=== PATIENT | female | born 1980 | race Caucasian/White ===

== ENCOUNTER → 2023-02-27 09:37 | Outpatient (CLI) | payer MEDICAID, SELFPAY | PROVIDERS: PCP Family Medicine; Visit Provider Nurse Practitioner Family | DX: D86.9 Sarcoidosis, unspecified (principal); J45.909 Unspecified asthma, uncomplicated | CPT/HCPCS: 94060; 94618; 94726; 94729 ==

== ENCOUNTER → 2023-03-04 14:34 | Outpatient (CLI) | payer MEDICAID, SELFPAY ==
[2023-03-04 15:12] LABS: Basophils # 0.1 K/mm3 (0-0.2); Basophils % 0.9 % (0.1-2.0); Eosinophils # 0.2 K/mm3 (0.0-0.4); Eosinophils % 2.5 % (0.1-12.0); Hematocrit 44.5 % (37.0-47.0); Hemoglobin 14.8 g/dL (12.2-16.2); Lymphocytes # 1.8 K/mm3 (0.7-4.5); Lymphocytes % 25.8 % (10-50); Mean Corpuscular HGB Conc 33.2 g/dL (31.8-35.4); Mean Corpuscular Hemoglobin 30.7 pg (27.0-31.2); Mean Corpuscular Volume 92.6 fl (81-99); Mean Platelet Volume 8.2 fl (7.4-10.4); Monocytes # 0.5 K/mm3 (0.1-1.0); Neutrophils # 4.5 K/mm3 (1.8-7.8); Neutrophils % 63.8 % (37.0-80.0); Platelet Count 289 K/mm3 (142-424)
[2023-03-04 16:12] LABS: Chloride 94 mmol/L (98-107); Potassium 4.9 mmoL/L (3.5-5.1); Sodium 138 mmol/L (136-145)
[2023-03-04 16:15] LABS: Alanine Aminotransferase 21 U/L (12-78); Albumin Level 4.6 g/dl (3.5-5.0); Albumin/Globulin Ratio 1.8 (1.1-1.8); Alkaline Phosphatase 88 U/L (38-126); Anion Gap 14.9 mEq/L (5-15); Aspartate Amino Transferase 28 U/L (14-36); Bilirubin,Total 0.3 mg/dl (0.2-1.3); Blood Urea Nitrogen 10 mg/dl (7-17); Calcium 9.8 mg/dl (8.4-10.2); Carbon Dioxide 34 mmol/L (22.0-30.0); Estimated Glomerular Filt Rate 60 ml/min (>60); GFR (African American) 73 ML/MIN (>60); Globulin 2.6 g/dL (1.3-3.2); Glucose 85 mg/dl (74-100); Total Protein,Serum 7.2 g/dl (6.3-8.2)
[2023-03-04 16:46] LABS: Thyroid Stimulating Hormone 3.24 uIU/mL (0.465-4.68)
[2023-03-04 18:29] LABS: Vitamin B12 203 pg/mL (239-931)
[2023-03-04 18:31] LABS: Folate 2.94 ng/mL
[2023-03-06 11:13] LABS: Rapid Plasma Reagin Ab Titer Non Reactive (NonRea<1:1)
[2023-03-06 14:13] LABS: Anti-Centromere B Antibodies <0.2 AI (0.0-0.9); Anti-DNA (DS) Ab Qn <1 IU/mL (0-9); Anti-Jo-1 <0.2 AI (0.0-0.9); Anti-Smith Antibody <0.2 AI (0.0-0.9); Antichromatin Antibodies <0.2 AI (0.0-0.9); Antiscleroderma-70 Antibodies <0.2 AI (0.0-0.9); RNP Antibodies <0.2 AI (0.0-0.9); Sjogren's Anti-SS-A <0.2 AI (0.0-0.9); Sjogren's Anti-SS-B <0.2 AI (0.0-0.9)
[2023-03-06 15:13] LABS: Angiotensin Converting Enzyme 48 U/L (14-82)
== END ==
PROVIDERS: PCP Family Medicine; Visit Provider Nurse Practitioner Family
DX: F39 Unspecified mood [affective] disorder (principal); D86.9 Sarcoidosis, unspecified; F43.10 Post-traumatic stress disorder, unspecified; G43.019 Migraine without aura, intractable, without status migrainosus; G47.00 Insomnia, unspecified; J45.909 Unspecified asthma, uncomplicated; M54.2 Cervicalgia; R20.0 Anesthesia of skin; R20.2 Paresthesia of skin; R29.2 Abnormal reflex; R44.1 Visual hallucinations; Z85.41 Personal history of malignant neoplasm of cervix uteri; Z87.898 Personal history of other specified conditions
CPT/HCPCS: 36415; 80053; 82164; 82607; 82746; 84443; 85025; 86225; 86235; 86593

== ENCOUNTER → 2023-03-27 13:00 | Outpatient (CLI) | payer MEDICAID, SELFPAY ==
--- NOTE | 2023-03-27 13:05 | MR_ITS ---
FINAL REPORT CLINICAL HISTORY: neck pain, brisk reflexes FINDINGS: Multiplanar MR imaging of the cervical spine was performed without contrast. On the sagittal T2-weighted images, disc degeneration is seen throughout. There is no evidence of fracture. The vertebral alignment is normal. The cervical spinal cord has an unremarkable appearance without evidence of mass, edema or syrinx. No significant canal stenosis is identified. The cervicomedullary junction is normal. C2-3: There is no significant canal stenosis or neural foraminal narrowing. C3-4: There is no significant canal stenosis or neural foraminal narrowing. C4-5: There is no significant canal stenosis or neural foraminal narrowing. C5-6: An annular bulge and uncovertebral osteophytes are present. There is no significant canal stenosis or neural foraminal narrowing. C6-7: An annular bulge is present. There is a small central disc protrusion. There is no significant canal stenosis or neural foraminal narrowing. C7-T1: There is no significant canal stenosis or neural foraminal narrowing. IMPRESSION: Degenerative disc changes as above. Small central disc protrusion at C6-7. Reviewed, Interpreted and Dictated by Jaydon Jackson III, MD Transcribed by Nona Colon Authenticated and . [facility]
--- NOTE | 2023-03-27 13:05 | MR_ITS ---
FINAL REPORT CLINICAL HISTORY: eval mass, lesion, volume loss, metasis. headache with hallucinations FINDINGS: Multiplanar MR imaging of the brain was performed without and with contrast. There is no evidence of intracranial hemorrhage or mass. No abnormal extra-axial fluid collection is seen. The ventricular size is within normal limits. There is no evidence of shift of the midline structures. The posterior fossa and brainstem have an unremarkable appearance. No area of abnormal restricted diffusion is identified. No abnormal contrast enhancement is seen. Normal major vessel vascular flow voids are noted. IMPRESSION: No acute intracranial abnormality identified. Reviewed, Interpreted and Dictated by Jaydon Jackson III, MD Transcribed by Nona Colon Authenticated and [facility]
== END ==
PROVIDERS: PCP Family Medicine; Visit Provider Nurse Practitioner Family
DX: M54.2 Cervicalgia (principal); G43.019 Migraine without aura, intractable, without status migrainosus; R20.0 Anesthesia of skin; R20.2 Paresthesia of skin; D86.9 Sarcoidosis, unspecified; R29.2 Abnormal reflex; R44.1 Visual hallucinations; R51.9 Headache, unspecified; Z85.41 Personal history of malignant neoplasm of cervix uteri; F39 Unspecified mood [affective] disorder; F43.10 Post-traumatic stress disorder, unspecified; G47.00 Insomnia, unspecified; J45.909 Unspecified asthma, uncomplicated
CPT/HCPCS: 70553; 72141; 76376; A9576

== ENCOUNTER → 2023-05-06 11:54 | Outpatient (CLI) | payer MEDICAID, SELFPAY ==
--- NOTE | 2023-05-06 12:05 | XR_ITS ---
FINAL REPORT CLINICAL HISTORY: neck pain, brisk reflexes sarcoidosis pain in neck, constant headaches FINDINGS: SPINE CERVICAL COMPLETE/FLEXION & EXT 7 views were obtained. Vertebrae are normal height. Mild degenerative disc changes at C4-C5 and C5-C6. Minimal anterolisthesis at C4-C5. Physiologic subluxation with flexion. No instability. Neural foramen are widely patent. IMPRESSION: No acute process. Reviewed, Interpreted and Dictated by Ross Farrell MD Transcribed by Sy Telles Authenticated and [facility]
--- NOTE | 2023-05-06 12:05 | XR_ITS ---
FINAL REPORT CLINICAL HISTORY: hypoxemia, left breast biopsy 3 weeks ago, biopsy of right lung 6 years ago FINDINGS: There is no evidence of effusion or other pleural disease. The mediastinum has a normal appearance. The cardiac silhouette is unremarkable. IMPRESSION: Unremarkable chest exam. Reviewed, Interpreted and Dictated by Ross Farrell MD Transcribed by Sy Telles Authenticated and [facility]
== END ==
PROVIDERS: PCP Family Medicine; Visit Provider Nurse Practitioner Family
DX: D86.9 Sarcoidosis, unspecified (principal); F39 Unspecified mood [affective] disorder; F43.10 Post-traumatic stress disorder, unspecified; G47.00 Insomnia, unspecified; J45.909 Unspecified asthma, uncomplicated; M54.2 Cervicalgia; R20.0 Anesthesia of skin; R20.2 Paresthesia of skin; R29.2 Abnormal reflex; R44.1 Visual hallucinations; Z85.41 Personal history of malignant neoplasm of cervix uteri; Z87.898 Personal history of other specified conditions; G43.019 Migraine without aura, intractable, without status migrainosus
CPT/HCPCS: 71046; 72052; 94762

== ENCOUNTER → 2023-05-20 15:24 | Outpatient (CLI) | payer MEDICAID, SELFPAY ==
--- NOTE | 2023-05-20 15:59 | ECG_ITS ---
APPROVED REPORT Exam: Resting ECG HR:59 bpm ECG Measurements Heart Rate 59 AXES ID 127 P 54 QRSd 92 QRS 50 QT 405 T 50 QTc 405 Conclusion SINUS BRADYCARDIA MODERATE T-WAVE ABNORMALITY, CONSIDER ANTERIOR ISCHEMIA [-0.1+ mV T-WAVE IN V3/V4] ABNORMAL ECG UNCONFIRMED REPORT Electronically signed by : Danny Balderas MD 05/20/2023 20:45:40
[2023-05-20 17:37] LABS: Alanine Aminotransferase 17 U/L (12-78); Albumin Level 4.7 g/dl (3.5-5.0); Albumin/Globulin Ratio 1.7 (1.1-1.8); Alkaline Phosphatase 89 U/L (38-126); Anion Gap 12.8 mEq/L (5-15); Aspartate Amino Transferase 24 U/L (14-36); Bilirubin,Total 0.3 mg/dl (0.2-1.3); Blood Urea Nitrogen 10 mg/dl (7-17); Calcium 9.8 mg/dl (8.4-10.2); Carbon Dioxide 29 mmol/L (22.0-30.0); Chloride 103 mmol/L (98-107); Estimated Glomerular Filt Rate 60 ml/min (>60); GFR (African American) 73 ML/MIN (>60); Globulin 2.7 g/dL (1.3-3.2); Glucose 82 mg/dl (74-100); Potassium 4.8 mmoL/L (3.5-5.1); Sodium 140 mmol/L (136-145); Total Protein,Serum 7.4 g/dl (6.3-8.2)
[2023-05-20 17:43] LABS: C-Reactive Protein 2.4 mg/L (0-4)
== END ==
LOC: LAB 15:25
PROVIDERS: PCP Family Medicine; Visit Provider Internal Medicine Pulmonary Disease
DX: R06.09 Other forms of dyspnea (principal); J84.9 Interstitial pulmonary disease, unspecified; Z01.818 Encounter for other preprocedural examination; D86.9 Sarcoidosis, unspecified
CPT/HCPCS: 36415; 80053; 82565; 84520; 86140; 93005

== ENCOUNTER → 2023-06-10 05:15 | Outpatient (CLI) | payer MEDICAID, SELFPAY ==
--- NOTE | 2023-06-10 | CA_ITS ---
APPROVED REPORT EXAM: Comprehensive 2D, Doppler, and color-flow Echocardiogram Automatic Hemmer: Ale Samaniego CRT Ht: 5 ft 2 in Wt: 131lbs BSA: 1.60 BP: 114/71 mmHg Indications: Shortness of Breath, asthma, sarcoidosis, ex smoker 2D Dimensions LVOT 1.81 cm (M/F) 1.5-2.5 LA Volume 16.00 mL LA Volume Index 10.00 mL/m2 (M/F) 16-34 M-Mode Dimensions RVDd 2.03 cm (0.9-2.6) LA Diam 2.63 cm (1.9-4.0) LVDd 3.57 cm (3.5-5.7) Ao Diam 3.59 cm (2.0-3.7) LVDs 2.38 cm (3.5-5.7) IVSd 1.07 cm (0.6-1.1) PWd 0.67 cm (0.6-1.1) EF (Teich) 63.00% FS 33.30% EDV (Teich) 53.30 mL TAPSE 1.79 (<1.7) ESV (Teich) 19.70 mL LV Diastology MED E' 12.50 (< 7 cm/sec) MED A' 13.20 cm/s LAT E' 10.00 (<10 cm/sec) LAT A' 12.40 cm/s Aortic Valve AO Peak GR. 3.00 mmHg Pulmonary Valve PV Peak Velocity 61.00 (50-150 cm/s) Tricuspid Valve TR P. Velocity 264.00 cm/s RAP Estimate 10.00 mmHg RVSP 38.00 mmHg Left Ventricle The left ventricle is normal size. The left ventricular systolic function is normal. The left ventricular ejection fraction is within the normal range. There is normal left ventricular wall thickness. There is normal LV segmental wall motion. The left ventricular diastolic function is normal. LVEF is 55-60%. Right Ventricle The right ventricle is normal size. The right ventricular systolic function is normal. Atria The left atrium size is normal. The right atrium size is normal. There is no Doppler evidence of interatrial shunt. Aortic Valve The aortic valve is trileaflet. The aortic valve opens well. There is no aortic valvular stenosis. No aortic regurgitation is present. Mitral Valve The mitral valve is normal in structure. No evidence of mitral valve stenosis. There is no mitral valve regurgitation noted. Tricuspid Valve The tricuspid valve is thin and pliable. Trace tricuspid regurgitation. RVSP is 15-20 mmHg. Pulmonic Valve The pulmonary valve is normal in structure. Trace pulmonic regurgitation. Great Vessels The aortic root is normal in size. The ascending aorta is normal in size. IVC is normal in size and collapses >50% with inspiration. Pericardium There is no pericardial effusion. Other Information Study Quality: Adequate Conclusion Normal biventricular systolic function. No significant valvular disease. Electronically signed by : Eleanor Pereira, 06/11/2023 15:04:05
--- NOTE | 2023-06-10 11:00 | CT_ITS ---
FINAL REPORT TECHNIQUE: Thin-section axial CT images were obtained through the soft tissues of the neck without and with contrast. This study was performed with techniques to keep radiation doses as low as reasonably achievable, (ALARA). Individualized dose reduction techniques using automated exposure control or adjustment of mA and/or kV according to the patient's size were employed. CLINICAL HISTORY: ABN PFT FINDINGS: The paranasal sinuses are well aerated. There is no adenopathy or mass lesion present. The thyroid is unremarkable. Limited images of the lung apices are unremarkable. The glottis and supraglottic areas are unremarkable. There is mild disc space narrowing at C5-6 with mild bilateral neural foraminal narrowing. There is no suspicious enhancing mass. IMPRESSION: No acute process. Mild changes of degenerative disc disease at C5-6. Reviewed, Interpreted and Dictated by Chris Villanueva MD Transcribed by Olesya Bales Authenticated and [facility]
== END ==
PROVIDERS: PCP Family Medicine; Visit Provider Internal Medicine Pulmonary Disease
DX: R06.02 Shortness of breath (principal); D86.9 Sarcoidosis, unspecified
CPT/HCPCS: 70492; 93306

== ENCOUNTER → 2023-07-09 14:43 | Outpatient (CLI) | payer MEDICAID, SELFPAY | PROVIDERS: PCP Family Medicine; Visit Provider Internal Medicine Pulmonary Disease | DX: G47.30 Sleep apnea, unspecified (principal); R06.83 Snoring | CPT/HCPCS: G0399 ==

== ENCOUNTER → 2023-07-30 15:50 | Outpatient (CLI) | payer MEDICAID, SELFPAY | PROVIDERS: PCP Family Medicine; Visit Provider Physician Assistant | DX: R06.00 Dyspnea, unspecified (principal); R07.9 Chest pain, unspecified; R42 Dizziness and giddiness; R55 Syncope and collapse; I20.89 Other forms of angina pectoris; D86.9 Sarcoidosis, unspecified; R53.83 Other fatigue; Z82.49 Family history of ischemic heart disease and other diseases of the circulatory system | CPT/HCPCS: 93270 ==

== ENCOUNTER → 2023-09-24 11:13 | Outpatient (CLI) | payer MEDICAID, SELFPAY ==
--- NOTE | 2023-09-24 11:13 | NM_ITS ---
APPROVED REPORT Exam: Nuclear Stress Test Indication: chest pain..soa..fatigue..syncope Patient Location: Outpatient Stress Tech: Kiya Avila NE Tech:Sara Kelly NOMIAnais RT(R)(N) Ht: 5 ft 2 in Wt: 131 lbs Bra Size: 32d HR: 74 bpm BP: 98/65 mmHg BSA: 1.60 m2 TID: 1.04 BMI: 23.9 History: chest pain..soa..fatigue..syncope Procedure: Patient received 0.4 mg of intravenous Lexiscan, resting heart rate 74 bpm, resting blood pressure 98/65 mmHg, with Lexiscan maximum heart rate achieved was 135 bpm which is 85 % of the maximum predicted heart rate and blood pressure was 117/72 mmHg. With Lexiscan, patient denied any complaint of chest pain. Cardiac Stress and Resting SPECT Images: Cardiac Stress and Resting SPECT images were obtained using technetium 99m Myoview 32.7 mCi stress and 10.47 mCi at rest. Resting and stress imaging in supine and prone positions demonstrate no evidence of fixed or reversible perfusion defects. Gated imaging demonstrates normal global and regional LV systolic function. LVEF is calculated at 71%. Conclusion: No evidence of fixed or reversible perfusion defects. Gated imaging demonstrates normal global and regional LV systolic function. LVEF is calculated at 71%. Electronically signed by : Eleanor Pereira MD 09/25/2023 09:53:19
--- NOTE | 2023-09-24 13:21 | CA_ITS ---
APPROVED REPORT Exam: Pharmacologic Technologist: Kiya Fernandez, Ht: 5 ft 2 in Wt: 129 lbs BSA: 1.59 m2 HR: 68 bpm BP: 98/65 mmHg Rhythm: NSR Medical History Medications: Lorazepam,,,,, Pantoprazole,,,,, SyMBICORT,,,,, Prednisone,,,,, LoraTADINE,,,,, Baclofen,,,,, Sertraline,,,,, ONdansetron,,,,, UBrelvy,,,,, AJOVY,,,,, GaVIlyte-G,,,,, Stress Test Details Test: LEXISCAN Reason for pharmacologic stress test: physical limitation. HR Resting HR: 74 bpm Max Heart Rate (APMHR): 175 bpm Max HR Achieved: 135 bpm Target HR (85% APMHR): 149 bpm % of APMHR: 77 Recovery HR: 85 bpm BP Resting BP: 98.0/65.0 mmHg Max BP: 117.0/72.0 mmHg Recovery BP: 110.0/67.0 mmHg ECG Resting ECG: NSR Stress ECG: No significant ST changes Arrhythmia: PVCs Clinical Exercise duration: 04:17 min Highest Stage Achieved: Exercise capacity: 1.0 METs Stress ECG Conclusion Stress 2 minute: Nausea, flushed 3 minute: Nausea, vomiting 4 minute: Nausea, vomitin Recovery 1 minute: Belching 2 minute: Aminophylline 100 mg slow IV given 3 minute: Feels much better 5 minute: sxs almost gone Symptoms: Mild SOA, flushed, nausea, vomiting. No CP. Arrhythmias/Ectopy: PVCs ST-T Changes: No significant ST changes Conclusion: Unremarkable Lexiscan stress. Myoview images reported separately. Test Summary REST . . . . . . . Resting REST 04:10 . . 74 . 98/ 65 . . Stage 1 01:00 . . 126 . . . . Stage 2 01:00 . . 135 . 109/ 70 . . Stage 3 01:00 . . 133 . . . . Stage 4 01:00 . . 117 . . . . Stage 4 01:17 . . 120 . 115/ 76 . Stop exercise at 04:17 RECOVERY 01:00 . . 109 . . . . RECOVERY 02:00 . . 114 . . . . RECOVERY 03:00 . . 110 . 117/ 72 . . RECOVERY 04:00 . . 103 . 117/ 72 . . RECOVERY 05:00 . . 85 . 110/ 67 . . RECOVERY 05:01 . . 85 . 110/ 67 . . Electronically signed by : Eleanor Pereira MD 09/25/2023 09:52:14
== END ==
LOC: RAD 11:13
PROVIDERS: PCP Family Medicine; Visit Provider Physician Assistant
DX: R06.09 Other forms of dyspnea (principal); I20.89 Other forms of angina pectoris; Z82.49 Family history of ischemic heart disease and other diseases of the circulatory system
CPT/HCPCS: 78452; 93017; 93018; A9502; J2785

== ENCOUNTER 2023-10-07 17:18 | Emergency (ER) | payer MEDICAID, SELFPAY ==
[2023-10-07] VITALS (9 sets, daily range): BP systolic 104–131; BP diastolic 73–84; PULSE 85–100; RESP 13–24; TEMP 36.3–36.7; O2SAT 95–98; BMI 23.6
--- NOTE | 2023-10-07 17:33 | XR_ITS ---
PROCEDURE INFORMATION: Exam: XR Chest Exam date and time: 10/07/2023 5:50 PM Age: 43 years old Clinical indication: Shortness of breath; Additional info: SOA TECHNIQUE: Imaging protocol: Radiologic exam of the chest. Views: 2 views. COMPARISON: No relevant prior studies available. FINDINGS: Lungs: Normal. Pleural spaces: Normal No pleural effusion. No pneumothorax. Heart/Mediastinum: Normal. No cardiomegaly. Bones/joints: Unremarkable. IMPRESSION: No acute findings.
[2023-10-07 17:37] LABS: Coronavirus 19, PCR Not Detected (NotDetected); Influenza A, PCR Not Detected (NotDetected); Influenza B, PCR Not Detected (NotDetected)
[2023-10-07 17:51] LABS: Basophils # 0.1 K/mm3 (0-0.2); Basophils % 1.4 % (0.1-2.0); Eosinophils # 0.1 K/mm3 (0.0-0.4); Eosinophils % 2.1 % (0.1-12.0); Hematocrit 46.4 % (37.0-47.0); Hemoglobin 15.6 g/dL (12.2-16.2); Lymphocytes # 1.1 K/mm3 (0.7-4.5); Lymphocytes % 25.1 % (10-50); Mean Corpuscular HGB Conc 33.5 g/dL (31.8-35.4); Mean Corpuscular Hemoglobin 30.5 pg (27.0-31.2); Mean Corpuscular Volume 90.9 fl (81-99); Mean Platelet Volume 9.1 fl (7.4-10.4); Monocytes # 0.4 K/mm3 (0.1-1.0); Monocytes % 8.7 % (1.7-9.3); Neutrophils # 2.7 K/mm3 (1.8-7.8); Neutrophils % 62.8 % (37.0-80.0); Platelet Count 200 K/mm3 (142-424); Red Blood Count 5.11 M/mm3 (4.20-5.40); White Blood Count 4.3 K/mm3 (4.8-10.8)
[2023-10-07 17:55] LABS: Chloride 102 mmol/L (98-107); Sodium 142 mmol/L (136-145)
[2023-10-07 17:57] LABS: Blood Urea Nitrogen 11 mg/dl (7-17); Creatinine Clearance Estimated 82 mL/min (50-200); Estimated Glomerular Filt Rate 78 ml/min (>60); GFR (African American) 94 ML/MIN (>60)
[2023-10-07 17:58] LABS: Alanine Aminotransferase 21 U/L (12-78); Albumin Level 4.9 g/dl (3.5-5.0); Albumin/Globulin Ratio 1.8 (1.1-1.8); Alkaline Phosphatase 83 U/L (38-126); Aspartate Amino Transferase 40 U/L (14-36); Bilirubin,Total 0.5 mg/dl (0.2-1.3); Carbon Dioxide 28 mmol/L (22.0-30.0); Globulin 2.8 g/dL (1.3-3.2); Glucose 110 mg/dl (74-100); Total Protein,Serum 7.7 g/dl (6.3-8.2)
--- NOTE | 2023-10-07 18:03 | PC.NURSE ---
CRITICAL K+ 3.0 RECEIVED FROM [facility] IN LAB. PT NAME AND R/V. DR ZAPATA NOTIFIED
--- NOTE | 2023-10-07 18:07 | HMH.EDGENADL ---
Discharge Plan Disposition Patient Disposition: Home, Self-Care Condition: Good Prescriptions Prescriptions: New potassium chloride 20 mEq tablet extended release 20 meq PO DAILY Qty: 30 0RF No Action budesonide-formoterol [Symbicort] 160-4.5 mcg/actuation HFA aerosol inhaler 1 puff inhalation QID PRN (Reason: shortness of breath or wheezing) 90 Days Qty: 10.2 3RF epinephrine [EpiPen] 0.3 mg/0.3 mL auto-injector 0.3 mg IM Q5-15M PRN (Reason: anaphalyxis) Rx Instructions: do not exceed 3 doses per episode loratadine 10 mg tablet 10 mg PO DAILY sertraline 100 mg tablet 150 mg PO DAILY pantoprazole 40 mg tablet,delayed release (DR/EC) 40 mg PO DAILY Patient Comments: TAKE 1 TABLET BY MOUTH ONCE A DAY. ondansetron 4 mg tablet,disintegrating 4 mg PO Q6H PRN (Reason: Nausea And Vomiting) baclofen 20 mg tablet 20 mg PO HS prednisone 20 mg tablet 20 mg PO BID PRN (Reason: suzi n) lorazepam 0.5 mg tablet 0.5 mg PO DAILY Patient Comments: TAKE (1) TABLET BY MOUTH TWICE A DAY NEEDED. FILL 01/31 acetaminophen [Tylenol Arthritis Pain] 650 mg tablet extended release 650 mg PO Q8H PRN (Reason: Pain) ibuprofen [Advil] 200 mg tablet 200 mg PO Q6H PRN (Reason: paimn) Ajovy Autoinjector 225 mg/1.5 mL auto-injector 225 mg SQ QMONTH Qty: 1.5 5RF Ubrelvy 100 mg tablet 100 mg PO ONCE PRN (Reason: Migraine) Qty: 10 5RF Rx Instructions: Take 100 mg at onset of headache, photophobia, photophobia. May repeat after 2 hours if symptoms persist. Max 2 tablets in 24 hours. sodium,potassium,mag sulfates [Suprep Bowel Prep Kit] 17.5-3.13-1.6 gram recon soln 354 ml PO .COMPLEX Qty: 354 0RF Rx Instructions: follow mailed instructions peg 3350-electrolytes [GaviLyte-G] 236-22.74-6.74 -5.86 gram recon soln 240 ml PO Q10M Qty: 4000 0RF Rx Instructions: until fecal effluent is clear-- follow mailed instructions metoprolol succinate [Toprol XL] 25 mg tablet extended release 24 hr 25 mg PO QHS Referrals Follow up/Referrals: Provider,Referral, MD [Primary Care Provider] - See instructions Activity Restrictions/Add. Instructions Additional Instructions/Restrictions: You were evaluated in the emergency department today. Please follow-up closely with your primary care provider and general studies program chair. Return to the emergency department for new or worsening symptoms. Clinical Impressions Clinical Impression: Hypokalemia, Chest pain Instructions Patient Instructions: DI for Atypical Chest Pain, DI for Hypokalemia Discharge ED Provider: Marielos Fischer General Adult HPI General Chief complaint: Arrhythmia/Palpitations Stated complaint: chest pain Time Seen by Provider: 10/07/23 17:26 Mode of Arrival: Ambulatory Limitations: No Limitations Description of Symptoms (Recalled from ER Triage Doc. by RN): PT REPORTS IRREGULAR HEART RATE SINCE HAVING STRESS TEST ON 09/25. REPORTS SHORTNESS OF BREATH AND COUGH X 3-4 DAYS. History of Present Illness HPI narrative: This patient is a 43-year-old female with a history of anxiety, atypical angina, PTSD, depression, sarcoidosis, asthma, and multiple previous evaluations for chest pain presenting to the emergency department for evaluation with concern for palpitations since having a stress test on 09/24/2023. On medical record review, the stress test appeared to have been reassuring. She states that also she has had cough and shortness of breath for the last 3 to 4 days. She states that she is had really severe dry cough and has had orthopnea. No other concerns noted at this time. Related Data Home Medications Medication Instructions Recorded Confirmed acetaminophen 650 mg 650 mg PO Q8H PRN Pain 02/18/23 09/24/23 tablet,extended release (Tylenol Arthritis Pain) baclofen 20 mg tablet 20 mg PO HS 02/18/23 09/24/23 ibuprofen 200 mg tablet (Advil) 200 mg PO Q6H PRN pa
[2023-10-07 18:08] LABS: NT Pro Brain Natriuretic Pep. 94.9 pg/mL (0-125)
--- NOTE | 2023-10-07 18:12 | ECG_ITS ---
APPROVED REPORT Exam: Resting ECG HR:100 bpm ECG Measurements Heart Rate 100 AXES IN 129 P 57 QRSd 87 QRS 48 QT 321 T 14 QTc [address] DEVIATION AND MODERATE T-WAVE ABNORMALITY, CONSIDER ANTEROLATERAL ISCHEMIA [-0.1+ mV T-WAVE IN V3-V6] ABNORMAL ECG UNCONFIRMED REPORT Electronically signed by : Danny Balderas MD 10/08/2023 09:00:55
[2023-10-07 18:13] LABS: Troponin I < 0.01 ng/ml (0.00-0.034)
[2023-10-07 18:24] LABS: Magnesium 2.1 mg/dl (1.6-2.3)
[2023-10-07 18:29] LABS: Thyroid Stimulating Hormone 3.03 uIU/mL (0.465-4.68)
--- NOTE | 2023-10-07 18:30 | PC.NURSE ---
Patient crying stating her IV is burning. Requesting to turn off IV potassium.
--- NOTE | 2023-10-07 18:58 | PC.NURSE ---
Rounded on pt. No needs voiced at this time. Call light within reach
--- NOTE | 2023-10-07 19:44 | PC.NURSE ---
rounded on pt, visitor at bedside, no needs at this time
[2023-10-07 20:47] LABS: Troponin I < 0.01 ng/ml (0.00-0.034)
== END 2023-10-07 21:20 | disposition home or self-care (01) ==
PROVIDERS: Emergency Provider Emergency Medicine
DX: R07.9 Chest pain, unspecified (principal); E87.6 Hypokalemia; J45.909 Unspecified asthma, uncomplicated; D86.9 Sarcoidosis, unspecified; I20.9 Angina pectoris, unspecified; F17.200 Nicotine dependence, unspecified, uncomplicated; R00.0 Tachycardia, unspecified
CPT/HCPCS: 71046; 80053; 83735; 83880; 84436; 84443; 84484; 85025; 87636; 93005; 96365; 99285

== ENCOUNTER 2024-08-25 10:47 | Outpatient (CLI) | payer MEDICAID, SELFPAY ==
[2024-08-25 12:47] LABS: Vitamin B12 280 pg/mL (239-931)
[2024-08-26 15:15] LABS: Antiparietal Cell Antibody 1.7 Units (0.0-20.0)
[2024-08-28 09:14] LABS: Intrinsic Factor Abs, Serum 1.1 AU/mL (0.0-1.1)
== END 2024-08-25 23:59 | disposition home or self-care (01) ==
LOC: LAB 10:48
PROVIDERS: PCP Nurse Practitioner Family; Visit Provider Specialist
DX: R51.9 Headache, unspecified (principal); E53.8 Deficiency of other specified B group vitamins
CPT/HCPCS: 36415; 82607; 83516; 86340